=== PATIENT | female | born 1980 ===

== ENCOUNTER 2017-07-25 21:46 | Emergency (ER) | payer MEDICAID ==
[2017-07-25 21:52] VITALS: BMI 20.9
[2017-07-25 21:54] VITALS: BP 118/64; PULSE 88; RESP 16; TEMP 98.6; O2SAT 98
--- NOTE | 2017-07-25 21:57 | ED PDOC ---
HPI: General Adult Time Seen by Provider: 07/25/17 21:56 Chief Complaint (Nursing): Alcohol Ingestion Chief Complaint (Provider): etoh, vomiting History Per: Patient Additional Complaint(s): 36-year-old female with no past medical history presents to emergency department with vomiting and abdominal pain that started shortly after patient drank a small amount of liquor earlier today. Patient is now unable to keep down any liquids or solids. She denies any diarrhea, fever or chills. No associated chest pain, shortness of breath or dyspnea on exertion. Patient does not usually drink alcohol. Past Medical History Reviewed: Historical Data, Nursing Documentation, Vital Signs Vital Signs: Last Vital Signs Temp 98.6 F 07/25/17 21:52 Pulse 88 07/25/17 21:52 Resp 16 07/25/17 21:52 BP 118/64 07/25/17 21:52 Pulse Ox 98 07/25/17 23:09 - Medical History PMH: No Chronic Diseases - Surgical History Surgical History: No Surg Hx - Family History Family History: States: No Known Family Hx - Living Arrangements Living Arrangements: With Family - Social History Current smoker - smoking cessation education provided: No Alcohol: Occasional Drugs: Denies - Home Medications Home Medications: Ambulatory Orders Medication Instructions Recorded Ondansetron [Zofran Odt] 4 mg PO ASDIR PRN #20 odt 07/25/17 - Allergies Allergies/Adverse Reactions: Allergies Allergy/AdvReac Type Severity Reaction Status Date / Time No Known Allergies Allergy Verified 07/25/17 21:52 Review of Systems ROS Statement: Except As Marked, All Systems Reviewed And Found Negative Constitutional: Negative for: Fever, Chills Cardiovascular: Negative for: Chest Pain Respiratory: Negative for: Cough Gastrointestinal: Positive for: Nausea, Vomiting, Abdominal Pain. Negative for : Diarrhea Neurological: Negative for: Headache, Dizziness Physical Exam - Reviewed Nursing Documentation Reviewed: Yes Vital Signs Reviewed: Yes - Physical Exam Appears: Positive for: Well, Non-toxic, No Acute Distress Skin: Negative for: Rash Eye Exam: Positive for: Normal appearance Cardiovascular/Chest: Positive for: Regular Rate, Rhythm Respiratory: Positive for: Normal Breath Sounds Gastrointestinal/Abdominal: Positive for: Soft. Negative for: Tenderness, Distended, Guarding, Rebound Back: Negative for: L CVA Tenderness, R CVA Tenderness Extremity: Positive for: Normal ROM Neurologic/Psych: Positive for: Alert, Oriented - Laboratory Results Result Diagrams: 07/25/17 22:25 07/25/17 22:25 - ECG O2 Sat by Pulse Oximetry: 98 Pulse Ox Interpretation: Normal Medical Decision Making Medical Decision Makin36 year old with vomiting s/p drinking alcohol Plan: CBC CMP Lipase BAL U preg and dip IVF IV zofran IV toradol - ordered but declined by patient Patient was able to tolerate water in ED, nausea resolved, no further emesis noted. Repeat examination of abdomen remains benign. Will d/c with rx zofran. Advised fluids, rest and follow up with clinic or PMD in 2-3 days. Disposition - Clinical Impression Clinical Impression: Alcohol intolerance, Gastritis - Patient ED Disposition Is Patient to be Admitted: No Counseled Patient/Family Regarding: Studies Performed, Diagnosis, Need For Followup, Rx Given - Disposition Referrals: [facility] [Outside] Disposition: Routine/Home Disposition Time: 23:08 Condition: IMPROVED Additional Instructions: Drink plenty of fluids and follow bland diet. Take prescription medications as directed as needed for nausea or vomiting. Follow up with clinic or primary doctor in 2-3 days. Prescriptions: Ondansetron [Zofran Odt] 4 mg PO ASDIR PRN #20 odt PRN Reason: Nausea/Vomiting Instructions: Gastritis (ED), At-Risk Alcohol Use (ED), Acute Nausea and Vomiting (ED) Forms: [place] (Lao)
[2017-07-25] MEDS ORDERED: Sodium Chloride 0.9% 1,000 ML IV STA (22:03)
[2017-07-25 22:36] LABS: BASO # 0.1 K/uL (0.0-0.2); BASO % 1.1 % (0.0-2.0); EOS % 0.5 % (0.0-4.0); HEMATOCRIT 39.5 % (34.0-47.0); LYMPH # 1.8 K/uL (1.0-4.3); LYMPH % 30.1 % (20.0-40.0); MEAN CELL VOLUME 88.2 fl (81.0-99.0); MEAN CORPUSCULAR HEMOGLOBIN 28.9 pg (27.0-31.0); MEAN CORPUSCULAR HGB CONC 32.8 g/dL (33.0-37.0); MEAN PLATELET VOLUME 10.4 fl (7.2-11.7); MONO # 0.4 K/uL (0.0-0.8); MONO % 6.5 % (0.0-10.0); NEUT # 3.7 K/uL (1.8-7.0); NEUT % 61.8 % (50.0-75.0); RED CELL DISTRIBUTION WIDTH 13.1 % (11.5-14.5)
[2017-07-25 22:46] LABS: ALB/GLOB RATIO 1.3 (1.0-2.1); ALCOHOL SERUM 112 mg/dl (0-10); ALKALINE PHOSPHATASE 48 U/L (38-126); ALT/SGPT 28 U/L (9-52); AST/SGOT 25 U/L (14-36); BILIRUBIN,TOTAL 0.1 mg/dl (0.2-1.3); BLOOD UREA NITROGEN 10 mg/dl (7-17); CALCIUM 8.7 mg/dL (8.4-10.2); CARBON DIOXIDE 20 mmol/L (22-30); CHLORIDE 107 mmol/L (98-107); GFR AFRICAN-AMERICAN > 60; GLUCOSE,RANDOM 123 mg/dL (65-105); LIPASE 58 U/L (23-300); POTASSIUM 3.5 MMOL/L (3.6-5.0); SODIUM 144 mmol/l (132-148); TOTAL PROTEIN 8.1 G/DL (6.3-8.2)
== END 2017-07-25 23:28 | disposition home or self-care (01) ==
LOC: H.ER 21:46
DX: K29.70 Gastritis, unspecified, without bleeding (principal); F10.20 Alcohol dependence, uncomplicated
CPT/HCPCS: 80053; 80320; 83690; 85025; 99281; J2405; J7040